=== PATIENT | male | born 1950 | race Caucasian/White ===

== ENCOUNTER 2023-04-24 07:24 | Day surgery (SDC) | payer OTHER ==
[2023-04-23 10:16] VITALS: BMI 27.4
[~2023-04-24 07:24] MED LIST: EPINEPHrine 0.3 MG in Ophthalmic Irrigation Solution 500 ML IRR SCH
[2023-04-24] MEDS ORDERED: PHENYLephrine 2.5% Ophth Soln 15 ml Bottle ONE (07:52)
[2023-04-24] MEDS ORDERED: Cyclopentolate 1% Opth Drop 2 ML BOT ONE (07:52)
[2023-04-24] MEDS ORDERED: Midazolam HCl 2 mg/2 ml Vial ONE (08:15)
[2023-04-24] MEDS ORDERED: fentaNYL 50 mcg/mL 1 mL Vial ONE (08:15)
[2023-04-24] MEDS ORDERED: Lidocaine 1% PF 5 ML VIAL ONE (08:23)
[2023-04-24] MEDS ORDERED: CEFAZOLIN 1 GM VIAL ONE ×2 (08:23)
[2023-04-24] MEDS ORDERED: Lidocaine 4% PF 5 ML AMP ONE (08:23)
[2023-04-24] MEDS ORDERED: Maxitrol 0.1% Opth Oint 3.5 GM TUBE ONE (08:23)
[2023-04-24] MEDS ORDERED: PROPOFOL 200 MG/20 ML VIAL ONE (08:23)
[2023-04-24] MEDS ORDERED: Bupivacaine 0.75% 10 ML VIAL ONE (08:23)
[2023-04-24] MEDS ORDERED: Dexamethasone 4 mg/ml Vial ONE (08:37)
== END 2023-04-24 09:35 | disposition home or self-care (01) ==
LOC: SDC 07:24
PROVIDERS: ATTEND Ophthalmology Retina Specialist
PROC: 08T53ZZ Resection of Left Vitreous, Percutaneous Approach (ICD-10-PCS; principal; 2023-04-24)
DX: H43.822 Vitreomacular adhesion, left eye (principal); H35.372 Puckering of macula, left eye
CPT/HCPCS: 67025; J0171; J0690; J1100; J2250; J2704; J3010; J3490